=== PATIENT | female | born 1965 | race Caucasian/White ===

== ENCOUNTER → 2016-09-07 | Outpatient (CLI) | payer OTHER ==
[~2016-09-07] MED LIST: CALC1CAP24 PO; CALC500C70 PO; MULT-506 PO; OMEG10007 PO; OXYC-57 PO
== END | disposition home or self-care (01) ==
LOC: C.PAPS 14:01
PROVIDERS: ATTEND Physician Assistant
DX: Z12.4 Encounter for screening for malignant neoplasm of cervix (principal)

== ENCOUNTER → 2016-10-16 | Outpatient (CLI) | payer OTHER ==
--- NOTE | 2016-10-17 14:36 | MAMMOGRAPHY REPORT ---
BILATERAL DIGITAL SCREENING MAMMOGRAM TOMOSYNTHESIS WITH CAD: 10/16/2016 CLINICAL HISTORY: Routine screening. TECHNIQUE: Breast tomosynthesis in addition to standard 2D mammography was performed. Current study was also evaluated with a Computer Aided Detection (CAD) system. COMPARISON: Comparison is made to exams dated: 10/14/2015 mammogram, 10/12/2014 mammogram, 10/09/2013 ma mmogram, 10/07/2012 mammogram, 10/04/2011 mammogram, and 10/03/2010 mammogram - [facility] BREAST COMPOSITION: The tissue of both breasts is extremely dense, which lowers the sensitivity of m ammography. FINDINGS: The parenchymal pattern is unchanged. No developing mass, architectural distortion or clus ter of suspicious microcalcifications is seen in either breast. IMPRESSION: ACR BI-RADS CATEGORY 2: BENIGN There is no mammographic evidence of malignancy. A 1 year screening mammogram is recommended. The pa tient will receive written notification of the results. Approximately 10% of breast cancers are not detected with mammography. A negative mammographic report should not delay biopsy if a clinically suggestive mass is present. Lea Coleman M.D. ay/:10/16/2016 15:24:49 Tariff Supervisor: Alek PARADA(Felice)(Genie), [facility] letter sent: Normal 1/2 BI-RADS Code: ACR BI-RADS Category 2: Benign
== END | disposition home or self-care (01) ==
LOC: C.MAMM 14:16
PROVIDERS: ATTEND Internal Medicine
DX: Z12.31 Encounter for screening mammogram for malignant neoplasm of breast (principal)

== ENCOUNTER 2016-11-13 08:26 | Observation (INO) | payer OTHER ==
[2016-10-25 13:59] VITALS: Ht 171.4 cm; Wt 67.2 kg
--- NOTE | 2016-10-25 14:28 | PAT Medication Instructions ---
Service Date Oct 25, 2016. Current Home Medication List Calcium (Calcium), Unknown Dose PO QAM Multivitamin (Multivitamin), 1 TAB PO QAM Medication Instructions For Your Scheduled Surgery - Hold the following medications the morning of surgery: Calcium (Calcium), Unknown Dose PO QAM Multivitamin (Multivitamin), 1 TAB PO QAM If you have any questions please call us at [phone] or [phone] or [phone]
[2016-10-25 14:46] LABS: BASO % 0.4 %; BASO ABS # 0.02 K/uL (0-0.2); COMPLETE YES; EOS % 2.1 %; HEMATOCRIT 40.9 % (37-47); LYMPH % 46.9 %; LYMPH ABS # 2.19 K/uL (1.2-3.4); MEAN CELL VOLUME 98.1 fL (80-100); MEAN CORPUSCULAR HEMOGLOBIN 33.1 pg (25-34); MEAN CORPUSCULAR HGB CONC 33.7 g/dl (32-36); MEAN PLATELET VOLUME 9.8 fL (7.4-10.4); MONO % 9.9 %; NEUT % 40.7 %; PLATELET COUNT 210 K/uL (130-400); RED BLOOD COUNT 4.17 M/uL (4.2-5.4); WHITE BLOOD COUNT 4.67 K/uL (4.8-10.8)
[2016-11-13] VITALS (7 sets, daily range): BP systolic 132–150; BP diastolic 81–93; PULSE 48–82; TEMP 36.7–37; O2SAT 96–99
[~2016-11-13] VITALS: Ht 171.4 cm; Wt 67.2 kg
[~2016-11-13 08:26] MED LIST changes: +ATROPINE SULFATE 0.1 MG/ML 5ML SYR IV PRN; -CALC500C70 PO; +CEFAZOLIN 2000 MG/60 ML D5W 50 ML IV SCH; +EpHEDrine SULFATE INJ 50 MG/ML AMP IV PRN; +FENTANYL CITRATE INJ 50 MCG/1 ML 2 ML VIAL IV PRN; +HYDROmorphone INJ 1 MG/ML SYR IV PRN; +LACTATED RINGER'S 1000ML 1,000 ML IV SCH; +MIDAZOLAM HCL 1 MG/ML 2ML VIAL ONE; -OMEG10007 PO; +ONDANSETRON INJ 2 MG/ML 2 ML VIAL IV PRN; -OXYC-57 PO
[2016-11-13] MEDS ORDERED: LIDOCAINE HCL 2% 2 ML VIAL (20MG/ML) ONE (09:29)
[2016-11-13] MEDS ORDERED: FENTANYL CITRATE INJ 50 MCG/1 ML 2 ML VIAL ONE ×3 (09:29→11:56)
[2016-11-13] MEDS ORDERED: ROCURONIUM BROMIDE 10 MG/ML 5 ML VIAL IV ONE ×2 (09:29→11:23)
[2016-11-13] MEDS ORDERED: PROPOFOL IV EMULSION 10 MG/ML 20 ML VIAL IV ONE (09:29)
[2016-11-13] MEDS ORDERED: METHYLENE BLUE 0.5% 10 ML VIAL ONE (10:18)
[2016-11-13] MEDS ORDERED: BUPIVACAINE 0.5 % 5 MG/1 ML MPF 30ML VIAL ONE (10:18)
--- NOTE | 2016-11-13 10:31 | History & Physical Bridge Note ---
H&P Re-Evaluation Bridge Note: I have examined the patient, reviewed the History & Physical and in the interval since the performance of the History & Physical I have noted the following changes of clinical significance: No changes noted
[2016-11-13] MEDS ORDERED: NEOSTIGMINE METHYLSULFATE 5 MG/5 ML SYR ONE (11:56)
[2016-11-13] MEDS ORDERED: ONDANSETRON INJ 2 MG/ML 2 ML VIAL ONE (11:56)
[2016-11-13] MEDS ORDERED: GLYCOPYRROLATE INJ 0.2 MG/ML VIAL ONE (11:56)
[2016-11-13] MEDS ORDERED: DEXAMETHASONE SOD INJ 4 MG/ML VIAL ONE (11:56)
[2016-11-13] MEDS ORDERED: TISSEEL FIBRIN SEALANT 4ML TOP ONE (12:09)
[2016-11-13] MEDS ORDERED: LABETALOL HCL IV 5 MG/ML 20ML IV ONE (12:53)
[2016-11-13] MEDS ORDERED: NURSING VERBAL MED ORDER ONE (12:56)
[2016-11-13] MEDS ORDERED: OXYC-57 PO (12:59)
[2016-11-13] MEDS ORDERED: MEPERIDINE HCL 50 MG/ML CARP IV PRN ×2 (13:00)
[2016-11-13] MEDS ORDERED: SIMETHICONE 80 MG CHEW PO PRN (13:00)
[2016-11-13] MEDS ORDERED: OXYCODONE/ACETAMINOPHEN 5-325 TAB PO PRN ×2 (13:00)
[2016-11-13] MEDS ORDERED: IBUPROFEN 600 MG TAB PO PRN (13:00)
[2016-11-13] MEDS ORDERED: ACETAMINOPHEN 325 MG TAB PO PRN (13:00)
[2016-11-13] MEDS ORDERED: KETOROLAC TROMETHAMINE 30 MG/ML VIAL IV. PRN (13:00)
--- NOTE | 2016-11-13 13:01 | Discharge Instructions ---
Discharge Instructions Date of Service Nov 13, 2016. Admission Reason for Admission: Endometrial Mass Discharge Discharge Diagnosis / Problem: s/p total laproscopic hysterectomy, removal of Fallopian tubes Discharge Goals Goal(s): Routine recovery after surgery Activity Recommendations Activity Limitations: per Instructions/Follow-up section . Instructions / Follow-Up Instructions / Follow-Up POST OPERATIVE: BOWEL FUNCTION/MEDICATIONS: 1. Constipation pain and discomfort are the most common complaints 5-7 days after surgery. Points 2-6 address the things that can help. 2. Chewing gum can help stimulate the gut and help improve digestion and motility. 3. Milk of Magnesia 1-2 times per day until return of bowel function. 4. Colace is a stool softener that helps. Taking this 2-3 times per day until bowel function returns to normal is highly recommended. 5. Dulcolax is a laxative that may be used if several days have passed without a bowel movement. Alternatively Miralax may be used daily instead. 6. Drink plenty of fluids as this will also reduce constipation. 7. Narcotic pain medications will be prescribed by your physician. They are safe to use and we encourage you to use them. If you are not allergic, ibuprofen will also be prescribed. Many patients will be able to transition off of the narcotic medications to ibuprofen by postoperative day 3. ACTIVITY RECOMMENDATIONS: 1. Get plenty of rest and listen to your body. If you are tired, take a nap. 2. You may shower, but do not take a tub bath until you see your doctor at the 2 week post operative visit. 3. Absolutely NO intercourse and nothing in the vagina until you are examined by your doctor at the 6 week visit. At that visit it will be determined when such activities can be resumed. This can range from 6-12 weeks after your surgery depending on healing time. 4. The main physical activity in the first week should be walking. By the second week you can slowly increase activity. There are no limits on walking up and down stairs. 5. Do not lift more than 5-10 lbs for 4 weeks. Remember the "one-handed rule", i.e. if you can lift something with only one hand it's likely okay. 6. Minimize complaint evaluation supervisor like vacuuming and exercising for 4 weeks. "Overdoing it" can lead to incisions not healing, pain and vaginal bleeding , so again, listen to your body. 7. Driving can be resumed when you feel able. Do not drive within 24 hours of taking a narcotic medication. EXPECTATIONS: 1. Vaginal spotting, bleeding and discharge are common after surgery. There may even be an odor to the discharge which is often related to sutures used in the vagina. If you experience heavy vaginal bleeding, call the office number day or night [phone]. 2. Bladder discomfort is common after surgery from the catheter. This usually resolves in 1-2 weeks. 3. By the end of the 3rd or 4th week you should be feeling much better. It may take up to 6 weeks for your energy levels to return to normal. 4. Narcotic medications have side effects such as: dizziness, headache, nausea and/or vomiting. If you suspect your pain medication is causing problems, call our office and we may be able to prescribe an alternate medication. 5. The skin incisions are often covered with a liquid bandage. This will gradually peel off over time. CALL THE OFFICE IF YOU HAVE ANY OF THE FOLLOWIN. Temperature of 101 degrees or higher. 2. Severe abdominal or pelvic pain not relieved by pain medication. 3. Persistent nausea or vomiting. 4. Increased pain with urination or difficulty urinating. 5. Bright red bleeding that soaks more than 1 pad per hour. CONTACT PHONE NUMBERS: Main Office: [phone] Surgical Nurse: [phone] extension [phone] FOLLOW-UP: Post-Operative Appointments: * Individual instructions will have been given about the timing of your first examination, but this is usually at the end of the second week home. * You will need to call the office at soon after discharge to make the appointment for your post-op check-up if it has not already been scheduled. * Additional information regarding activity, sexual intercourse and when to return to work will be given at this appointment. WE WISH YOU A SPEEDY RECOVERY! Current Hospital Diet Patient's current hospital diet: regular Discharge Diet Recommended Diet: Regular Diet Procedures Procedures Performed: Robot Assisted Total Laparoscopic Hysterectomy Bilateral Salpingectomy; Cystoscopy Pending Studies Studies pending at discharge: no Medical Emergencies . Who to Call and When: Medical Emergencies: If at any time you feel your situation is an emergency, please call 911 immediately. . Non-Emergent Contact Non-Emergency issues call your: Motor Block Mechanic . . "Provider Documentation" section prepared by Reina Schmid. . VTE Core Measure Inpt VTE Proph given/why not?: Treatment not indicated [place] Drug Monitoring Program Search Results: patient reviewed within database, no issues identified
--- NOTE | 2016-11-13 13:02 | [facility] Post Operative Brief Note ---
Immediate Operative Summary Operative Date Nov 13, 2016. Pre-Operative Diagnosis 1. Endometrial Mass 2. Postmenopausal bleeding Post-Operative Diagnosis same as preop Procedure(s) Performed Robot Assisted Total Laparoscopic Hysterectomy Bilateral Salpingectomy; Cystoscopy Surgeon Dr. Reina Schmid Marketing Designer Surgeon(s) Dr. Fercho Ulrich Estimated Blood Loss 25 ML Findings top nl size uterus, nl tubes, nl ovaries, adhesions of the bowel to the left adnexa Fluids (cc crystalloids) 1000cc Specimens A. Cervix, Uterus, Bilateral Fallopian Tubes Drains pringle Anesthesia gett Complication(s) None Disposition Recovery Room / PACU
[2016-11-13] MEDS ORDERED: KETOROLAC TROMETHAMINE 30 MG/ML VIAL ONE (13:49)
[2016-11-13] MEDS ORDERED: LACTATED RINGER'S 1000ML 1,000 ML IV SCH (14:00)
--- NOTE | 2016-11-13 14:25 | Anesthesiology Progress Note ---
Anesthesia Post Op Note Date & Time Nov 13, 2016 at 14:24 Vital Signs Pain Intensity: 5.0 Vital Signs Past 12 Hours Date Time Temp Pulse Resp B/P (MAP) Pulse Ox O2 Delivery O2 Flow Rate FiO2 11/13/16 13:35 Room Air 11/13/16 13:35 37.0 50 16 150/93 (112) 98 Room Air 48 11/13/16 13:35 98 Room Air 11/13/16 13:20 36.4 47 16 164/99 97 Room Air 11/13/16 13:05 46 16 161/97 98 Room Air 11/13/16 12:55 44 16 161/92 100 Oxymask 11/13/16 12:45 53 16 172/94 100 Oxymask 11/13/16 12:35 36.2 59 16 165/95 100 Oxymask 11/13/16 08:59 37 64 18 136/85 99 Room Air Notes Mental Status: alert / awake / arousable, participated in evaluation Pt Amnestic to Procedure: Yes Nausea / Vomiting: adequately controlled Pain: adequately controlled Airway Patency, RR, SpO2: stable & adequate BP & HR: stable & adequate Hydration State: stable & adequate Anesthetic Complications: no major complications apparent
[2016-11-13] MEDS ORDERED: IV FLUIDS COMPLETED PRN (15:30)
[2016-11-13] MEDS ORDERED: DOCUSATE SODIUM 100 MG CAP PO SCH (21:00)
--- NOTE | 2016-11-13 21:52 | OPERATIVE REPORT ---
DATE OF OPERATION: 11/13/2016 PREOPERATIVE DIAGNOSIS: A 5-cm intracavitary fibroid with bleeding. POSTOPERATIVE DIAGNOSIS: Same. PROCEDURES: 1. Total laparoscopic hysterectomy using the da Klarissa assist with bilateral salpingectomy. 2. Cystoscopy. SURGEON: Dr. Reina Schmid. CALCINE FURNACE LOADER: Fercho Ulrich MD ANESTHESIA: General per endotracheal tube. ESTIMATED BLOOD LOSS: 25 mL. FLUIDS: 750cc. URINE OUTPUT: 100 mL of clear yellow urine drained from the bladder at the end of the procedure. INDICATIONS: The patient is a 51-year-old postmenopausal white female who has had a previous history of an intracavitary fibroid that was resected via the hysteroscope. She started to have some bleeding and had an ultrasound revealing a 5-cm almost entirely intracavitary fibroid. She declines less invasive surgery and desires hysterectomy. FINDINGS: The uterus is globular, approximately 8 weeks' size. Tubes normal bilaterally. Ovaries normal bilaterally. There was adhesion of the descending colon to the left adnexa. COMPLICATIONS: None. DRAINS: Barron. DISPOSITION: To recovery room in stable condition. DESCRIPTION OF PROCEDURE: The patient was taken to the operating room, where she was identified verbally and by bracelet. She was placed in dorsal supine position, where general anesthesia was induced without difficulty. She was then placed in dorsal lithotomy position in Yellofin stirrups. Her arms were carefully padded and tucked at her sides. Her chest was padded and restrained. The head of business development was placed to protect the patient's face and she was prepped and draped in normal sterile fashion. Timeout was held identifying correct patient, procedure and positioning. Attention was then turned to the perineum, where a 14-Togolese Barron catheter was placed. The uterus sounded to 10 cm, dilated to a #23 Elen dilator. The VCare uterine manipulator was placed into the uterus sewn to the cervix at 9 o'clock with a 0 Vicryl. Gloves were then changed and instruments were removed from the vagina. Attention was then turned to the abdomen, where a supraumbilical incision was made above the umbilicus. Veress needle was placed through this with opening pressure of 4 mmHg. The abdomen insufflated with 2 liters of carbon dioxide gas. A 12-mm optical trocar was used for intraabdominal entry under direct visualization. Two 8-mm da Klarissa trocars were placed in the bilateral lower quadrants and a left upper quadrant 10-mm accessory trocar was placed under direct visualization. Evaluation of the pelvis was as noted above. The da Klarissa surgical instrument technician device was then docked the patient and the nailing machine operator proceeded to the console. Attention was turned to the left adnexa, where the bowel was carefully taken down from the adnexa. Then, using bipolar cautery and hot kwkau, the tubo-ovarian ligament and round ligament were entered, the broad ligament was taken down, the uterine artery was skeletonized and the bladder flap was created anteriorly. The uterine artery was then cauterized using cautery and then cut with hot kwaku. This was performed in a similar fashion on the right side. The tube was easily visualized on the right side and was removed using hot kwaku first and passed out through the accessory trocar. Then, the tubo-ovarian ligament, round ligament, broad ligament and the bladder flap was created anteriorly. The uterine arteries were then cauterized and cut with hot kwaku. Once the bladder was found to be well down from the vagina, a colpotomy incision was made using hot kwaku and taken around in 365 degrees. Once the uterine specimen was removed from the vagina, it was then pulled through the vagina by the assistant kitchen manager. Then using a 2-0 V-Loc suture, the vaginal cuff was reapproximated and hemostasis was noted to be excellent. Dr. Ulrich, my assistant kitchen manager, performed cystoscopy with a 70-degree cystoscope. There was noted to be effluxing urine from both ureters and no bladder injury or stitches within the bladder, the cystoscopy was discontinued. The first Barron catheter was removed and a new Barron catheter was placed. Tisseel was then placed over the vaginal cuff. The instruments were removed from the abdomen. The da Klarissa surgical instrument technician device was removed from the patient. The gas was released from the abdomen. The trocars were removed. A deep stitch of 0 Vicryl was placed at the supraumbilical incision and all incisions were then closed with 4-0 Vicryl. All incisions were then infiltrated with 0.5% Marcaine and the skin was attended to with Dermabond. All sponge, lap and needle counts were correct x2. The patient tolerated the procedure well and was taken to recovery room in stable condition. I attest to the content of the Intraoperative Record and any orders documented therein. Any exceptions are noted below. CHRISTIANO
--- NOTE | 2016-11-17 17:10 | DISCHARGE SUMMARY ---
PREOPERATIVE DIAGNOSIS: Enlarged uterus with endometrial mass suspected to be intramural fibroid. DISCHARGE DIAGNOSES: Same. PROCEDURES: Total laparoscopic hysterectomy with bilateral salpingectomy and cystoscopy. HISTORY OF PRESENT ILLNESS: The patient is a 51-year-old postmenopausal female with postmenopausal bleeding. There is a large intracavitary fibroid noted on exam. She has had previous resection of similar fibroid and has now elected hysterectomy. For the rest of the patient's detailed history and physical, please see her dictated history and physical. ASSESSMENT: This is a 51-year-old postmenopausal female with endometrial bleeding, a large endometrial mass suspected to be an intracavitary fibroid. HOSPITAL COURSE: The patient was admitted and she underwent a total laparoscopic hysterectomy using a da Klarissa assist with bilateral salpingectomy and cystoscopy without difficulty. ESTIMATED BLOOD LOSS: 25 mL. FINDINGS: At this time of the surgery revealed a globular uterus approximately 8 weeks size. Normal tubes bilaterally, no ovaries bilaterally. There were adhesions of the descending colon to the left adnexa. The patient's postoperative course was uncomplicated. She voided after removal of her Barron catheter, ambulated without difficulty, tolerated a regular diet and tolerated p.o. pain medications without issue. She was discharged home the evening of surgery with a short prescription of Percocet and ibuprofen for pain management and to return in 2 weeks for postoperative visit.
== END 2016-11-13 18:42 | disposition home or self-care (01) ==
LOC: C.ACU 08:26 → C.MS4N 08:40 → ENRESERV 13:17
PROVIDERS: ADMIT Obstetrics & Gynecology; ATTEND Obstetrics & Gynecology
DX: D25.1 Intramural leiomyoma of uterus (principal); D25.0 Submucous leiomyoma of uterus; K66.0 Peritoneal adhesions (postprocedural) (postinfection); N94.89 Other specified conditions associated with female genital organs and menstrual cycle; I10 Essential (primary) hypertension; N83.8 Other noninflammatory disorders of ovary, fallopian tube and broad ligament; F43.20 Adjustment disorder, unspecified; E55.9 Vitamin D deficiency, unspecified; Z79.899 Other long term (current) drug therapy

== ENCOUNTER → 2017-10-18 | Outpatient (CLI) | payer OTHER ==
[~2017-10-18] MED LIST changes: -ATROPINE SULFATE 0.1 MG/ML 5ML SYR IV PRN; -CEFAZOLIN 2000 MG/60 ML D5W 50 ML IV SCH; -EpHEDrine SULFATE INJ 50 MG/ML AMP IV PRN; -FENTANYL CITRATE INJ 50 MCG/1 ML 2 ML VIAL IV PRN; -HYDROmorphone INJ 1 MG/ML SYR IV PRN; -LACTATED RINGER'S 1000ML 1,000 ML IV SCH; -MIDAZOLAM HCL 1 MG/ML 2ML VIAL ONE; -ONDANSETRON INJ 2 MG/ML 2 ML VIAL IV PRN
--- NOTE | 2017-10-19 15:41 | MAMMOGRAPHY REPORT ---
BILATERAL DIGITAL SCREENING MAMMOGRAM TOMOSYNTHESIS WITH CAD: 10/18/2017 CLINICAL HISTORY: Routine screening. Patient has no complaints. TECHNIQUE: The study was acquired using full field digital technology and interpreted from soft copy. Breast tomosynthesis in addition to standard 2D mammography was performed. Current study was also ev aluated with a Computer Aided Detection (CAD) system. COMPARISON: Comparison is made to exams dated: 10/16/2016 mammogram, 10/14/2015 mammogram, 10/12/2014 m ammogram, 10/07/2012 mammogram, 10/04/2011 mammogram, and 09/27/2009 mammogram - [facility]. BREAST COMPOSITION: The tissue of both breasts is extremely dense, which lowers the sensitivity of ma mmography. FINDINGS: No suspicious masses, calcifications, or areas of architectural distortion are noted in either breast . There has been no significant interval change compared to prior exams. IMPRESSION: ACR BI-RADS CATEGORY 1: NEGATIVE There is no mammographic evidence of malignancy. A 1 year screening mammogram is recommended.( 019) The patient will receive written notification of the results. Some breast cancers are not detected with mammography. A negative mammographic report should not yonis y biopsy if a clinically suggestive mass is present. Crissy Bourgeois M.D. ah/:10/18/2017 15:43:22 Customer Experience Retail Clerk: RT Bernie(Felice)(M), [facility] letter sent: Normal 1/2 BI-RADS Code: ACR BI-RADS Category 1: Negative
== END | disposition home or self-care (01) ==
LOC: C.MAMM 14:59
PROVIDERS: ATTEND Internal Medicine
DX: Z12.31 Encounter for screening mammogram for malignant neoplasm of breast (principal)

== ENCOUNTER 2019-01-03 04:58 | Inpatient (IN) ==
--- NOTE | 2018-12-20 15:50 | PAT Medication Instructions ---
Medication Instructions Date of Service December 20, 2018 Home Medications calcium carbonate-vitamin D3 [Calcium 600 + D(3)] 1 tab PO QAM cholecalciferol (vitamin D3) [Vitamin D3] 2,000 unit PO QAM DO NOT take the morning of surgery calcium carbonate-vitamin D3 [Calcium 600 + D(3)] 1 tab PO QAM cholecalciferol (vitamin D3) [Vitamin D3] 2,000 unit PO QAM Other Notes If you have any questions please call us at [phone] or [phone] or [phone] or [phone]
--- NOTE | 2018-12-23 11:40 | Anesthesiology Consultation ---
Date of Service December 23, 2018 Assessment & Plan (1) Encounter for pre-operative examination: Chart Review Chart Review: Pending: Refer to Additional Notes / Consult section (pending preop testing (labs, EKG, CXR)) and Patient seen in Pre Admission Testing Teaching & Discussion Pre-Anesthesia Teaching/Discussion Notes: Instructed NPO after midnight before surgery,except medications with 15 cc of water. Medication instructions provid ed according to the PAT guidelines. History Surgery Operation Date: 01/03/19 10:10 Proposed Procedures p Left Anterior Total Hip Arthroplasty - Champ Le DO Height/Weight Height: 5 ft 7 in Weight: 71.5 kg Allergies Allergy/AdvReac Type Severity Reaction Status Date / Time No Known Drug Allergies Allergy Verified 12/16/18 08:00 Medications Home Medications Medication Instructions Recorded Confirmed Last Taken calcium carbonate-vitamin D3 1 tab PO QAM 12/16/18 12/16/18 Unknown [Calcium 600 + D(3)] cholecalciferol (vitamin D3) 2,000 unit PO QAM 12/16/18 12/16/18 Unknown [Vitamin D3] Past Medical History Medical History Arthritis of left hip History of kidney stones Exercise / Class Metabolic Activity II 4-5 Yardwork/Stairs/Walk up hill Past Family History Family History Father FH: CABG (coronary artery bypass surgery) Father Family history of diabetes mellitus Past Surgical History Surgical History History of partial hysterectomy Hx of colonoscopy Hx of laparoscopy Past Anesthesia History No Hx of Anesthesia Complications and No Family Hx of Anesthesia Complications History of PONV No Hx of PONV and No Hx of Motion Sickness Social History Smoking Status: Never smoker Do You Dip or Chew Tobacco: No Hx Alcohol Use: Yes Alcohol type: wine alcohol intake frequency: a few times a month Hx Substance Use: No Review of Systems Patient denies chest pain, shortness of breath, dyspnea on exertion, reflux, cough, wheezing, palpitations. Physical Exam Vital Signs VITALS BP 148/90 P 65 TEMP 98.8 SP02 97%RA RESP 16 PHYSICAL Full neck and c-spine range of motion. Full TMJ range of motion. TMD 4 finger breaths Mallampati Score 3 Dentition: intact Lungs: clear throughout to auscultation Cardiac: regular rate and rhythm, no murmurs noted Spine: normal Carotid arteries: negative bruit Extremities: no edema
--- NOTE | 2018-12-23 12:21 | XRay Report ---
XR chest Pre-admission PA/Lat CLINICAL HISTORY: Preoperative evaluation COMPARISON STUDY: Chest CT October 25, 2012. FINDINGS: Lung volumes are normal. Lungs are clear. There is no pneumothorax or pleural effusion. Car diac size is normal. Mediastinal contours are normal. There is no evidence for pulmonary edema. Sligh t elevation/eventration of the right hemidiaphragm is unchanged. IMPRESSION: No acute cardiopulmonary findings. Electronically signed by: Brendon Smith M.D. 12/23/2018 12:19 PM
[2018-12-23 13:27] LABS: Hematocrit (blood only) 40.7 % (37-47); Hemoglobin 14.4 g/dL (12.0-16.0); Mean Corpuscular Hemoglobin 33.8 pg (25-34); Mean Corpuscular Hgb Conc 35.4 g/dL (32-36); Mean Corpuscular Volume 95.5 fL (80-100); Mean Platelet Volume 10.2 fL (7.4-10.4); Platelet Count 186 K/uL (130-400); RDW Coefficient of Variation 11.6 % (11.5-14.5); RDW Standard Deviation 40.6 fL (36.4-46.3); Red Blood Count 4.26 M/uL (4.2-5.4); White Blood Count 3.85 K/uL (4.8-10.8)
[2018-12-23 13:37] LABS: Prothrombin Time 10.1 Seconds (9.0-12.0)
[2018-12-23 13:49] LABS: BUN Creatinine Ratio 21.4 (10-20); Creatinine Clr Calc Pharmacy 68.8 ml/min; Est GFR (African American) 82.4; Est GFR (Non-African American) 71.1; Potassium 3.9 mmol/L (3.5-5.1)
[2018-12-23 14:13] LABS: ALC (manual) 2.15 K/uL (1.2-3.4); ANC (manual) 1.47 K/uL (1.4-6.5); Eosinophils # (manual) 0.07 K/uL (0-0.5); Eosinophils % (manual) 1.7 %; Lymphocytes # (manual) 1.04 K/uL (1.2-3.4); Lymphocytes % (manual) 27.1 %; Monocytes # (manual) 0.16 K/uL (0.11-0.59); Monocytes % (manual) 4.2 %; Neutrophils # (manual) 1.47 K/uL (1.4-6.5); Neutrophils % (manual) 38.2 %; Reactive Lymphocytes # (manual) 1.11 K/uL; Reactive Lymphocytes % (manual) 28.8 %; Smudge Cells Present
--- NOTE | 2019-01-02 14:35 | History & Physical Report ---
Date of Service January 02, 2019 Assessment & Plan (1) Osteoarthritis of left hip: We will proceed with a left anterior total hip arthroplasty. Postoperatively she will be started on aspirin for DVT prophylaxis and kept overnight for postoperative medical management. She plans to use energy physical therapy upon discharge. Present on Admission?: Yes History of Present Illness Chief Complaint: Primary osteoarthritis of the left hip Primary Care Provider: Juan Gramajo MD Louise is a pleasant 53-year-old female who is been complaining of chronic increasing left hip pain. X-rays and clinical examination have been diagnostic for primary osteoarthritis of her left hip. After failing conservative treatment, she has elected proceed with a left total hip arthroplasty. Allergies Allergy/AdvReac Type Severity Reaction Status Date / Time No Known Drug Allergies Allergy Verified 12/16/18 08:00 Home Medications Home Medications Medication Instructions Recorded Confirmed Type calcium carbonate-vitamin D3 1 tab PO QAM 12/16/18 12/16/18 History [Calcium 600 + D(3)] cholecalciferol (vitamin D3) 2,000 unit PO QAM 12/16/18 12/16/18 History [Vitamin D3] Past Med/Surg History Medical History Arthritis of left hip History of kidney stones Surgical History History of partial hysterectomy Hx of colonoscopy Hx of laparoscopy Family History Father FH: CABG (coronary artery bypass surgery) Father Family history of diabetes mellitus Social History Preferred Language: Spanish Communication Ability: Effective Beliefs That Will Affect Care: None Current Living Situation: Spouse Feels Safe at Home: Yes Safety Concerns: Feels Safe At This Time Smoking Status: Never smoker Do You Dip or Chew Tobacco: No ; Second Hand Exposure: No ; Hx Alcohol Use: Yes Alcohol type: wine Hx Substance Use: No Review of Systems All systems reviewed & are unremarkable except as noted in HPI & below Physical Exam Constitutional: WD/WN, vitals as above Eyes: PERRL, conjunctivae normal, anicteric sclerae ENMT: external ear and nose normal, oropharynx normal Neck: trachea midline, no thyromegaly Respiratory: normal respiratory effort Cardiovascular: RRR, no murmur, no edema Gastrointestinal (Abdomen): normal bowel sounds, soft, nontender, no hepatosplenomegaly Musculoskeletal: Physical examination of the left hip reveals decreased range of motion with flexion, internal and external rotation. There is significant groin pain with forced internal rotation of the hip his leg lengths are essentially equal. Psychiatric: A+Ox3, euthymic affect Results & Data Diagnostic Findings Radiographs of the left hip and pelvis demonstrate advanced osteoarthritis with joint space narrowing osteophyte formation and [id number]-[id number] articulation.
[2019-01-03] MEDS ORDERED: GABAPENTIN 900 MG DOSE PO SCH (06:00)
[2019-01-03] MEDS ORDERED: FAMOTIDINE 20 MG TAB PO SCH (06:00)
[2019-01-03] MEDS ORDERED: TRANEXAMIC ACID 1,000 MG **IV Pre-op IV SCH (06:00)
[2019-01-03] MEDS ORDERED: ROPIVACAINE 0.5% HCL/PF 150 MG, BUPIVACAINE 0.5% MPF 30 ML, EPINEPHrine 30MG/30ML (OR U... INSTIL SCH (06:00)
[2019-01-03] MEDS ORDERED: ACETAMINOPHEN 500 MG TAB PO SCH (06:00)
[2019-01-03] MEDS ORDERED: LR 500ML BOLUS, THEN 15ML/HR IV SCH (06:00)
[2019-01-03] MEDS ORDERED: CEFAZOLIN 1000MG 1,000 MG/7.5 ML SYR IV SCH (06:00)
[2019-01-03] MEDS ORDERED: LR 60ML/HR IV SCH (06:00)
[2019-01-03] MEDS ORDERED: BUPIVACAINE 0.5 % 5 MG/1 ML PF 10ML VIAL ONE (06:18)
[2019-01-03] MEDS ORDERED: TRANEXAMIC ACID 1,000 MG **IV Intra-op IV SCH (06:30)
[2019-01-03] MEDS ORDERED: MIDAZOLAM HCL 1 MG/ML 2ML VIAL ONE ×2 (06:32→07:09)
[2019-01-03] MEDS ORDERED: PROPOFOL IV EMULSION 10 MG/ML 20 ML VIAL IV ONE (06:32)
[2019-01-03] MEDS ORDERED: LIDOCAINE HCL 2% 2 ML VIAL/AMP(20MG/ML) INFIL ONE (06:32)
[2019-01-03] MEDS ORDERED: fentaNYL citrate 100 MCG/2 ML VIAL IV PRN (06:40)
[2019-01-03] MEDS ORDERED: ePHEDrine sulfate 50 MG/ML AMP IV PRN (06:40)
[2019-01-03] MEDS ORDERED: ATROPINE SULFATE 0.1 MG/ML 10ML SYR IV PRN (06:40)
[2019-01-03] MEDS ORDERED: ONDANSETRON INJ 2 MG/ML 2 ML VIAL IV PRN ×2 (06:40→10:29)
[2019-01-03] MEDS ORDERED: ORTHO JOINT ANESTHETIC ONE (06:48)
--- NOTE | 2019-01-03 06:49 | History & Physical Bridge Note ---
Date of Service January 03, 2019 History & Physical Bridge Note I have examined the patient, reviewed the History & Physical and in the interval since the performance of the History & Physical I have noted the following changes of clinical significance: no changes noted
[2019-01-03] MEDS ORDERED: ONDANSETRON INJ 2 MG/ML 2 ML VIAL ONE (07:27)
--- NOTE | 2019-01-03 08:25 | Operative Report ---
Post Operative Report Pre & Post Diagnosis Operation Date: 01/03/19 07:00 Pre-Op Diagnosis: Left Hip Degeneartive Joint Disease Post-Op Diagnosis: Left Hip Degeneartive Joint Disease I identified the patient and participated in the time-out.: Yes Procedure Operation Date: 01/03/19 07:00 Actual Procedures p Left Anterior Total Hip Arthroplasty(Left) - Champ Le DO Surgeon Champ Le DO Medical Donation Professional Champ Joy PAC Estimated Blood Loss 100 Findings Consistent with Post-Op Diagnosis Specimens Left femoral head Complications none Disposition Disposition: Recovery Room Indications Louise is a pleasant 53-year-old female who has been complaining of chronic increasing left hip pain. X-rays and clinical examination were diagnostic for primary osteoarthritis of the left hip. After failing conservative treatment, she elected to proceed with a left anterior total hip arthroplasty. Description of Procedure Implants used Biomet Taperloc total hip arthroplasty system with a size 5 standard offset Taperloc stem, a 50 mm G7 cup with a 25mm screw, an E1 polyethylene liner, a 36 mm ceramic head with a 0 neck. Patient arrived at the hospital for the above procedure. They were seen in the preoperative holding area and the operative extremity was identified and signed. They were given a spinal anesthetic. They were given a preoperative antibiotic and TXA. They were taken back To the operating room and laid on the table in the supine position. The leg was brought out through a Puristst leg positioner. The hip was then prepped and draped in sterile fashion. A timeout was done and the patient and the operative extremity was properly identified. An anterior approach was used. Dissection was taken down through the fascia and the tensor muscle belly was retracted laterally and the rectus was retracted medially. The circumflex vessels were identified and ligated. The capsule was then incised and tagged for later repair. The femoral neck was then cut and the femoral head was removed. The acetabulum was exposed. Time was spent doing a complete circumferential labral release. Sequential reaming of the acetabulum up to a size 49 reamer was done. Final reamings were done under fluoroscopy to ensure appropriate version. A Biomet 50 mm G7 cup was then impacted into place. A single 25 mm screw was placed. The E1 polyethylene liner was then snapped into place. Surrounding soft tissues were then injected with 100 cc of an orthopedic pain control cocktail. The proximal femur was then exposed. Sequential broaching up to a size 5 broach was done. Off that broach a size 36 head with a 0 neck was trialed. The hip was reduced and fluoroscopic images showed anatomic alignment of the implants in acceptable length. The broach was removed. The final size 5 standard offset Taperloc stem was then impacted into place. A ceramic 36 mm head with a 0 neck was then impacted into place in the hip was reduced. Final fluoroscopic images showed anatomic reduction of the hip. The capsule was then closed with #1 Vicryl suture. A dilute betadyne lavage was then done for 3 minutes. The joint was then irrigated with normal saline solution. The fascia was closed with #1 PDS suture. Skin was closed with 2-0 Vicryl, mady, and a Alison VAC dressing. The patient was then transferred to a hospital bed and taken to the post anesthesia care unit in stable condition. They tolerated the procedure well. I attest to the content of the Intraoperative Record and any orders documented therein. Any exceptions are noted below.
--- NOTE | 2019-01-03 08:41 | Fluoroscopy Report ---
FL hip LT 1V CLINICAL HISTORY: LEFT ANTERIOR HIP COMPARISON STUDY: Left hip 09/27/2018. FLUOROSCOPY TIME: 26 seconds. FINDINGS: 2 fluoroscopic spot images of the left hip demonstrate a left total hip arthroplasty. The h ardware appears intact. No fracture or dislocation. IMPRESSION: Fluoroscopy provided for left total hip arthroplasty. Electronically signed by: Jai Chen M.D. 01/03/2019 8:40 AM
--- NOTE | 2019-01-03 09:17 | XRay Report ---
XR hip 1V LT w pelvis CLINICAL HISTORY: IN PACU - A/P PELVIS and LATERAL HIP COMPARISON: None. DISCUSSION: Anatomic alignment posttotal left hip arthroplasty. Could contact between prosthetic and underlying bone. Expected postoperative soft tissue change. IMPRESSION: Anatomic alignment posttotal left hip arthroplasty. The above report was generated using voice recognition software. It may contain grammatical, syntax or spelling errors. Electronically signed by: Brock Pritchard M.D. 01/03/2019 9:16 AM
[2019-01-03] MEDS ORDERED: NALOXONE HCL 0.4 MG/1 ML VIAL/CARP IV PRN (10:29)
[2019-01-03] MEDS ORDERED: HYDROmorphone INJ 0.5 MG/0.5 ML SYR IV PRN (10:29)
[2019-01-03] MEDS ORDERED: BISACODYL 10 MG SUPP PR PRN (10:29)
[2019-01-03] MEDS ORDERED: METOCLOPRAMIDE HCL INJ 5 MG/ML 2 ML VIAL IV PRN (10:29)
[2019-01-03] MEDS ORDERED: MAGNESIUM HYDROXIDE SUSP 30 ML UDC PO PRN (10:29)
[2019-01-03] MEDS: DOCUSATE SODIUM 100 MG CAP PO SCH ×2 (10:55→21:07)
[2019-01-03] MEDS: MULTIVITAMIN TAB PO SCH (10:55)
[2019-01-03] MEDS: SODIUM CHLORIDE 0.9% 1000ML 1,000 ML IV SCH ×2 (10:58→21:07)
[2019-01-03] MEDS: KETOROLAC 30 MG/ML VIAL IV SCH ×3 (11:13→23:18)
[2019-01-03] MEDS: ACETAMINOPHEN 500 MG TAB PO SCH ×2 (13:11→21:08)
[2019-01-03] MEDS: CEFAZOLIN 2000MG 2,000 MG/15 ML SYR IV SCH ×2 (14:12→23:19)
--- NOTE | 2019-01-03 14:30 | Anesthesiology Progress Note ---
Date of Service January 03, 2019 Anesthesia Post Procedure Vital Signs Vital Signs: Temp Pulse Pulse Resp BP Pulse Ox 01/03/19 13:30 47 L 17 103/65 94 01/03/19 12:24 36.6 C 47 L 18 123/79 96 01/03/19 11:27 36.5 C 47 L 18 126/81 95 01/03/19 10:58 36.6 C 50 L 15 123/78 99 01/03/19 10:48 36.6 C 52 L 14 119/74 98 01/03/19 10:20 37.1 C 47 L 12 102/61 98 01/03/19 10:10 50 L 15 120/71 98 01/03/19 10:00 45 L 12 101/60 99 01/03/19 09:51 43 L 14 97/59 L 99 01/03/19 09:40 42 L 12 97/57 L 100 01/03/19 09:30 40 L 12 99/64 L 100 01/03/19 09:20 41 L 12 102/64 98 01/03/19 09:10 45 L 13 106/64 97 01/03/19 09:00 43 L 14 106/61 94 01/03/19 08:50 51 L 12 108/67 99 01/03/19 08:40 37.0 C 56 L 14 108/64 100 01/03/19 05:38 36.9 C 60 18 153/99 H 98 Pain Intensity Left Hip: Pain Intensity: 0 Transfer of Care Handoff Completed per policy Notes Mental Status: alert / awake / arousable Patient Amnestic to Procedure: Yes Nausea / Vomiting: adequately controlled Pain: adequately controlled Airway Patency, RR, SpO2: stable & adequate BP & HR: stable & adequate Hydration State: stable & adequate Neuraxial Anesthesia: was administered and sensory block is resolving Anesthetic Complications: no major complications apparent and Pt Satisfied with anesthetic care
[2019-01-03] MEDS: OXYCODONE HCL IR 5 MG TAB (IMMEDIATE RELEASE) PO PRN (19:43)
[2019-01-03] MEDS ORDERED: SENNA 8.6 MG TAB PO SCH (21:00)
[2019-01-03] MEDS: ASPIRIN 81 MG ECTAB PO SCH (21:08)
[2019-01-04 05:29] LABS: Basophils # (auto) 0.01 K/uL (0-0.2); Basophils % (auto) 0.1 %; Eosinophils # (auto) 0.03 K/uL (0-0.5); Eosinophils % (auto) 0.4 %; Hematocrit (blood only) 35.2 % (37-47); Hemoglobin 12.4 g/dL (12.0-16.0); Immature Granulocytes # (auto) 0.01 K/uL (0.00-0.02); Immature Granulocytes % (auto) 0.1 %; Lymphocytes # (auto) 1.37 K/uL (1.2-3.4); Lymphocytes % (auto) 19.6 %; Mean Corpuscular Hemoglobin 34.5 pg (25-34); Mean Corpuscular Hgb Conc 35.2 g/dL (32-36); Mean Corpuscular Volume 98.1 fL (80-100); Mean Platelet Volume 9.9 fL (7.4-10.4); Monocytes # (auto) 0.67 K/uL (0.11-0.59); Monocytes % (auto) 9.6 %; Neutrophils # (auto) 4.91 K/uL (1.4-6.5); Neutrophils % (auto) 70.2 %; Platelet Count 152 K/uL (130-400); RDW Coefficient of Variation 11.9 % (11.5-14.5); RDW Standard Deviation 43.1 fL (36.4-46.3); Red Blood Count 3.59 M/uL (4.2-5.4)
[2019-01-04 06:02] LABS: BUN Creatinine Ratio 17.1 (10-20); Calcium 8.5 mg/dl (8.5-10.1); Creatinine Clr Calc Pharmacy 79.6 ml/min; Est GFR (African American) 96.1; Est GFR (Non-African American) 82.9; Potassium 4.2 mmol/L (3.5-5.1)
[2019-01-04] MEDS: KETOROLAC 30 MG/ML VIAL IV SCH (06:28)
[2019-01-04] MEDS: ACETAMINOPHEN 500 MG TAB PO SCH (06:28)
[2019-01-04] MEDS: OXYCODONE HCL IR 5 MG TAB (IMMEDIATE RELEASE) PO PRN (08:46)
[2019-01-04] MEDS: DOCUSATE SODIUM 100 MG CAP PO SCH (08:47)
[2019-01-04] MEDS: ASPIRIN 81 MG ECTAB PO SCH (08:47)
[2019-01-04] MEDS: MULTIVITAMIN TAB PO SCH (08:47)
--- NOTE | 2019-01-04 09:06 | Orthopedic Progress Note ---
Date of Service January 04, 2019 Assessment & Plan (1) Osteoarthritis of left hip: Overall she is doing very well. She not having much pain in the left hip. She is happy with her progress to this point. She will be seen by physical therapy today for ambulation and range of motion exercises. She is on aspirin for DVT prophylaxis. She can be discharged home later this morning. She will follow-up with orthopedics in 2 weeks. Present on Admission?: Yes Herrera Gil was seen and examined at bedside this morning. Overall she is doing very well. She is not having much pain in the left hip. She has already ambulated around the nurses station. She has no complaints. Physical Exam Musculoskeletal: On physical examination of the left hip, the Alison VAC dressings to suction. Her leg lengths are equal. She is active dorsiflexion and plantarflexion of the left ankle. Sensations intact. Results & Data Vital Signs (Past 12 Hours) Vital Signs Temp Pulse Pulse Resp BP Pulse Ox 01/04/19 08:00 37 C 76 18 118/75 100 01/04/19 03:20 36.8 C 55 L 16 123/77 99 01/03/19 23:06 36.7 C 53 L 16 122/73 97 Laboratory Results H & H 12/23/18 01/04/19 Range/Units 11:30 05:07 Hgb 14.4 12.4 (12.0-16.0) g/dL Hct 40.7 35.2 L (37-47) % Coagulation 12/23/18 Range/Units 11:30 INR 1.0 (0.9-1.1) Diagnostic Findings Postoperative x-rays of the left hip show the prosthesis to be in anatomic alignment without any evidence of fracture, dislocation, or loosening. PG Care Time/CCT Total # of Minutes Spent Total Time Spent with Patient: Total time spent is greater than 50% in coordination of care (as documented) at patient's floor/unit and/or counseling patient:
--- NOTE | 2019-01-04 09:07 | Discharge Summary ---
Date of Service January 04, 2019 Admission HPI Per Admitting Provider Louise is a pleasant 53-year-old female who is been complaining of chronic increasing left hip pain. X-rays and clinical examination have been diagnostic for primary osteoarthritis of her left hip. After failing conservative treatment, she has elected proceed with a left total hip arthroplasty. Principal Diagnosis Left total hip arthroplasty Discharge Data Allergies Allergy/AdvReac Type Severity Reaction Status Date / Time No Known Drug Allergies Allergy Verified 12/16/18 08:00 Consultations 01/04/19 08:00 Consult Case Management - Discharge Planning Routine Procedures Performed Operation Date: 01/03/19 07:00 Actual Procedures p Left Anterior Total Hip Arthroplasty(Left) - Champ Le DO Ordered Studies 01/03/19 07:00 FL fluoroscopy <1hr Routine FL hip LT 1V Routine Hospital Course (1) Osteoarthritis of left hip: On January 03, 2019 Louise arrived at [facility] and underwent a left total hip arthroplasty without complication. She had a spinal anes thetic. Postoperatively she was started on aspirin for DVT prophylaxis and discharged to general orthopedic floors. Her hospital course is uneventful. On postop day #1 her H&H was stable and her pain was well controlled. She was able to participate well with physical therapy doing ambulation and range of motion exercises. She was then discharged [facility] with [facility]. She will follow-up with orthopedics in 2 weeks. Total Time Total Time Spent Total Time Spent (In Minutes): 20 Discharge Plan Discharge Items Patient Disposition: Home - Home Health Services Reason For Visit: Left Hip Degeneartive Joint Disease Discharge Diagnosis: Left total hip arthroplasty Activity: As commented below Non-emergency contact: Surgeon Call non-emergency contact if: your wound has increased redness and your wound has increased drainage Follow-up/Referrals: Juan Gramajo MD [Primary Care Provider] - Diet: Regular Addtl Attending Provider Instructions: Activity and Therapy Recommendations: * If you are using [facility] then therapy will be provided at your home until they feel you have accomplished all of your goals. * If you are using [facility] then Physical Therapy will be provided until they feel you are ready to start Outpatient Physical Therapy. * If you are not using home therapy then Outpatient Physical Therapy should start about 3-5 days from your day of surgery. Therapy will last about 6-10 weeks * You were shown a series of exercises in the hospital. Do these exercises three times each day including the exercises you were shown in physical therapy. * Get up and walk several times each day.~ For the first four weeks, try not to stand or walk for more than one hour at a time. If you do stand or walk for more than one hour, you will not hurt anything, but your leg will likely swell.~~ * As you feel comfortable, you may change from the walker or crutches to a cane and~then to independent walking. Medications: * Narcotic You will likely be sent home from the hospital with a prescription for the narcotic pain medication that worked best throughout your stay. * Aspirin Most patients will be required to take Aspirin 81mg twice a day for 6 weeks after surgery. This is obtained [id number] and a prescription is not necessary. * Other medications may be prescribed for specific circumstances. If you have any questions, please call the office at . * Resume previous home medications unless otherwise instructed TEDs/Elastic Stockings: The white elastic stockings help limit swelling and prevent blood clots from forming in your legs. The more you wear them, the more they work. Wear them for six weeks. Dressing Care: You will likely have a purple VAC dressing after surgery. This dressing will keep the incision dry and promote early healing. After about 7 days the batteries will wear out and the VAC will lose suction. Simply remove the dressing at that time and throw everything away, including the small suction machine. Then, you may leave the mady open to air or cover them with a dry dressing so they do not rub on your pants. The mady will be removed at your 2 week follow-up appointment. Showering: You may shower immediately with the purple VAC dressing. Let the shower spray hit your opposite side and slowly pat the plastic dry. Do not soak the dressing. After the dressing is removed you may shower normally with the mady exposed. Let soapy water run over the mady and pat them dry. Things To Watch For: * Drainage from the incision site that occurs more than one week after your surgery. * Increased redness at the incision site. * Fever above 102 degrees Fahrenheit. * Unusual chest pain or shortness of breath. * Call [facility] at with any of the above problems Follow-Up Visit: Follow-up with Dr. Le 2-3 weeks after your day of surgery. An appointment was probably scheduled when you signed-up for surgery in the office. If you have any questions call Office Instructions: More detailed instructions as well as Frequently Asked Questions were provided in a folder by our office when you signed-up for surgery. Please review these instructions when you get home. If you have any further questions or concerns, please feel free to call the office at [phone] Pending Studies at Discharge: No Stand-Alone Forms: [facility] Medications and DC Order Prescriptions: New oxycodone 5 mg Tablet 5 mg PO Q4H PRN (Reason: pain) Qty: 30 RF: 0 Continued calcium carbonate-vitamin D3 [Calcium 600 + D(3)] 600 mg(1,500mg) -400 unit Tablet 1 tab PO QAM RF: 0 cholecalciferol (vitamin D3) [Vitamin D3] 2,000 unit Tablet 2,000 unit PO QAM RF: 0 Discharge Orders: Discharge Order (Routine); Ordered 01/04/19 Ordered By: Champ Fulton/Other Patient Handouts: DVT Prevent Admission Data Admit Date/Time: 01/03/19 08:43 Attending Provider: Champ Le Admit Provider: Champ Le Primary Care Provider: Juan Gramajo Other Interventions: Discharge Summary Assessment (RN) Last Done: 01/04/19 08:56
== END 2019-01-04 11:12 | disposition home or self-care (01) | DRG 470 ==
LOC: ASU 04:58 → 3E 08:43
DX: M16.12 Unilateral primary osteoarthritis, left hip